=== PATIENT | male | born 1985 | race American Indian/Alaskan Native ===

== ENCOUNTER 2024-06-12 12:23 | Emergency (ER) | payer OTHER, SELFPAY ==
[2024-06-12 12:25] VITALS: BMI 34.8
[2024-06-12 12:43] VITALS: BP 156/94; PULSE 70; RESP 18; TEMP 36.9; O2SAT 96; BMI 34.8
--- NOTE | 2024-06-12 13:09 | XR_ITS ---
Examination: Tibia-Fibula, right , 2 views Technique: Tibia-fibula AP lateral 2 views Date and time of exam: June 12, 2024 1412 hours INDICATIONS: Twisting injury to the leg today, leg pain FINDINGS: No acute fracture No dislocation No foreign body IMPRESSION: No acute fracture
--- NOTE | 2024-06-12 13:09 | XR_ITS ---
Examination: Arterial duplex lower extremity study, unilateral right Date and time of exam: June 12, 2024 1329 hours INDICATIONS: Onset right calf pain beginning 2 days ago Findings: Duplex sonographic imaging of the lower extremity arteries using B-mode/Amato scale imaging and Doppler spectral analysis and color flow. Ankle brachial indices have been recorded. Right common femoral artery demonstrates triphasic flow. Right superficial femoral artery demonstrates triphasic flow. Right popliteal artery demonstrates triphasic flow. Right posterior tibial artery demonstrated triphasic flow. Right ankle/brachial index is 1.3. Impression: Negative examination
[2024-06-12] MEDS: IBUPROFEN TAB 400 MG TABLET 800 MG PO (13:21)
--- NOTE | 2024-06-12 13:40 | XR_ITS ---
Examination: Duplex scan of the lower extremity, unilateral right INDICATIONS: Right calf pain beginning 2 days ago Date and time of exam: June 12, 2024 1346 hours Technique: Duplex scan of the extremity veins using B-mode/grayscale imaging and Doppler spectral analysis and color flow Attention is directed to internal echogenicity, compression and augmentation involving these veins, color flow assessment, spectral analysis Findings: Major deep venous structures in the extremity demonstrate normal course and caliber. There is no evidence of deep vein thrombosis. Normal color flow and spectral analysis Impression: Negative for DVT.. Right complete
--- NOTE | 2024-06-19 06:38 | EDNOTE_ITS ---
ED Back Injury Pain RME/HPI General Chief Complaint: Extremity Injury, Lower Stated Complaint: INJURY AT WORK, LOWER RIGHT CALF INJURY Time Seen by Provider: 06/12/24 12:28 Source: patient Arrival date/time: 06/12/24 12:23 This is a 38-year-old male who presented to the emergency department with complaints of right Injury. Patient reports he works for the [employer] department he was doing his fitness exam walking with a 20 pound vest when he felt a strain on his right calf muscle. Reports since then he has been having pain with ambulation prompting his visit today. Patient did not attempt any interventions or take any OTC medications prior to ED visit. No other injuries reported Mode of arrival: ambulatory Limitations: no limitations Related Data Home Medications ?Medication ?Instructions ?Recorded ?Confirmed No Known Home Medications 10/24/2010/10 Allergies Allergy/AdvReac Type Severity Reaction Status Date / Time No Known Allergies Allergy Verified 06/12/24 12:24 Review of Systems Review of Systems Systems Reviewed: All systems reviewed, normal except as documented Narrative Review of Systems: Gen: No fever, no chills, no weight loss EYES: No discharge, no visual changes, no pain HEENT: No ear pain, no congestion, no sore throat PULM: No shortness of breath, no cough, no congestion CV: No chest pain, no dyspnea on exertion, no palpitations GI: No nausea, no vomiting, no diarrhea, no pain, no constipation : No frequency, no urgency, no dysuria Musc/skel: Calf pain, no back pain Skin: No rash Psyc: No hallucinations, no depression Heme/Lymph: No easy bleeding or bruising tendencies Neuro: No weakness, no headache ED Exam General Limitations: Present no limitations General appearance: Present alert and in no apparent distress Head Head exam: Present atraumatic Eye Eye exam: Present normal appearance, PERRL and EOMI ENT ENT exam: Present normal exam, normal oropharynx and mucous membranes moist Neck Neck exam: Present normal inspection, full ROM and trachea midline Chest Chest inspection: Present normal inspection and symmetric chest wall rise Respiratory Respiratory exam: Present normal lung sounds bilaterally Cardiovascular Cardiovascular exam: Present regular rate, normal rhythm and normal heart sounds Abdominal Exam Abdominal exam: Present soft and normal bowel sounds; Absent distention, tenderness or guarding Extremities Exam Extremities exam: Present full ROM, normal capillary refill and calf tenderness; Absent pedal edema or joint swelling Expanded Lower Extremity Exam Hip/Pelvis exam: Present normal inspection Upper leg exam: Present normal inspection Knee exam: Present normal inspection Lower leg exam: Present tenderness (Right calf tenderness) and Homans' sign; Absent swelling, abrasion or laceration Ankle exam: Present normal inspection Back Exam Back exam: Present normal inspection and full ROM Neurological Exam Neurological exam: Present alert, oriented X3 and CN II-XII intact Psychiatric Psychiatric exam: Present normal affect and normal mood Skin Skin exam: Present warm, dry, intact and normal color Course Quality Measures none Orders Category Date Time Status US arterial duplex LE RT Stat Exams 06/12/24 13:09 Completed US venous duplex LE RT Stat Exams 06/12/24 13:40 Completed XR tibia fibula RT 2V Stat Exams 06/12/24 13:09 Completed Ibuprofen Tab [Motrin Tab] Med 06/12/24 13:09 Discontinued 800 mg PO X1 ONE Vital Signs Vital signs: Vital Signs Temperature 98.4 F 06/12/24 12:43 Pulse Rate 70 06/12/24 12:43 Respiratory Rate 18 06/12/24 12:43 Blood Pressure 156/94 H 06/12/24 12:43 Pulse Oximetry (%) 96 06/12/24 12:43 Oxygen Delivery Method Room Air 06/12/24 12:43 Back Pain / Injury Patient data External records reviewed:: [facility] previous records Clinical information provided by:: patient Social determinants that could affect healthcare access:: none Patient has the following chronic illnesses:: None How is presenting disease/condition affected by chronic disease/condition?: no chronic disease Evaluation data The following diagnostics were reviewed and interpreted by me:: radiology exam(s) Lab and/or radiology exams considered but not ordered:: No Interpretation Summary: rdering Physician: [facility] Date of Service: 06/12/24 Procedure(s): US venous duplex LE RT Accession Number(s): [id number] cc: Chris Catalan MD; NO PRIMARY/FAMILY,PHYSICIAN; Yun [facility]osaAL[facility]Ivanna Llanos~ Examination: Duplex scan of the lower extremity, unilateral right INDICATIONS: Right calf pain beginning 2 days ago Date and time of exam: June 12, 2024 1346 hours Technique: Duplex scan of the extremity veins using B-mode/grayscale imaging and Doppler spectral analysis and color flow Attention is directed to internal echogenicity, compression and augmentation involving these veins, color flow assessment, spectral analysis Findings: Major deep venous structures in the extremity demonstrate normal course and caliber. There is no evidence of deep vein thrombosis. Normal color flow and spectral analysis Impression: Negative for DVT.. Right complete Ordering Physician: [facility]lanos Date of Service: 06/12/24 Procedure(s): XR tibia fibula RT 2V Accession Number(s): [id number] cc: Chris Catalan MD; NO PRIMARY/FAMILY,PHYSICIAN; [facility]~ Examination: Tibia-Fibula, right , 2 views Technique: Tibia-fibula AP lateral 2 views Date and time of exam: June 12, 2024 1412 hours INDICATIONS: Twisting injury to the leg today, leg pain FINDINGS: No acute fracture No dislocation No foreign body IMPRESSION: No acute fracture Medications / Prescriptions Medications or Prescriptions considered but not ordered:: no Medication administrations:: Medication Administration History Discontinued Medications Ibuprofen (Ibuprofen Tab 400 Mg Tablet) 800 mg PO X1 ONE Stop: 06/12/24 13:10 Last Admin: 06/12/24 13:21 Dose: 800 mg Documented By: OA All medications administered and effective Consultations Consultation(s) initiated? (list below): No Diagnosis Differential diagnosis back pain/injury: lumbar radiculopathy, sciatica, strain of lumbar region and other (DVT, strain of the calf, muscle strain, tib-fib fracture) Most likely diagnosis given after review of the tests above:: Calf muscle strain Admission Indicated Admission indicated?: not indicated Admission Request Was there a request for admission?: No Disposition Plan Disposition Plan: Discharge Discharge Attestation Discharge Attestation: The patient and all family members were given an opportunity to ask questions and understood the discharge instructions. Discharge instructions specifically effects, indications for sooner follow up or return to the emergency department, and the expected course of current diagnosis. Patient condition: Stable Discharge Plan Plan Patient Disposition: HOME (Self Care) Patient condition on transfer: Stable Prescriptions/Referrals Prescriptions/Med Rec: No Action No Known Home Medications Referrals: No Primary/Family,Physician [Primary Care Provider] - In 1 week Problem List Clinical Impression: Strain of right calf muscle Patient/Caregiver Discharge Instructions Education Materials: ED Muscle Strain, Extremity Additional Instructions: Follow-up with your primary doctor or Worker's Comp. doctor for follow-up care. Return to the emergency department there is any worsening symptoms change in condition Print Language: Seneg[place]e Stand Alone Forms: Marlee Award Info., Work/School Release, Patient Portal Info Letter PA/TEACHER HEARING IMPAIRED Supervising Physician PA/TEACHER HEARING IMPAIRED Supervising Physician: Dr kim
== END 2024-06-12 18:27 | disposition home or self-care (01) ==
PROVIDERS: Emergency Provider Family Medicine
DX: S86.911A Strain of unspecified muscle(s) and tendon(s) at lower leg level, right leg, initial encounter (principal); X50.1XXA Overexertion from prolonged static or awkward postures, initial encounter; Y99.0 Civilian activity done for income or pay
CPT/HCPCS: 73590; 93926; 93971; 99284; A9270